=== PATIENT | female | born 1940 | race Caucasian/White ===

== ENCOUNTER 2018-03-11 18:29 | Emergency (ER) | payer MEDICARE, BC ==
[2018-03-11] MEDS: Ondansetron 4 MG Tab.DIS PO ONE (19:12)
[2018-03-11] MEDS: Acetaminophen 325 MG Tab PO ONE (19:15)
--- NOTE | 2018-03-12 02:49 | ER ---
DATE OF SERVICE: 03/11/2018 HISTORY OF PRESENT ILLNESS: A 78-year-old lady who comes in by a private car. She tells me that she tripped while walking out of the local [employer] about 3 p.m. this afternoon. She was carrying an arm-load of groceries and other items that she purchased, and she tells me that she could not really see well right in front of her. She thinks she tripped on a rug. She fell forward and hit her face on the cement. The patient states that she was nauseated right away, but she did not vomit. She has been nauseated off and on since the injury, but again no vomiting. She feels lightheaded at times, and she has noticed some mild visual changes with the left eye. There has also been significant swelling around the left eye, mainly from the forehead area, but it does radiate down around the eye to the point where her eye is mostly closed with the swelling. The patient rates her pain currently at 2/10 or 3/10. She has not taken any [id number] pain medication. She did go back to her cabin and took a nap. She woke up and again felt lightheaded when she stood up, and she thought she should come in for evaluation. The patient is not on any blood thinner medications. MEDICATIONS: Her medications include amlodipine, metoprolol, Cozaar, and Protonix. ALLERGIES: ALBUTEROL, ATROPINE, PHENOBARBITAL, SCOPOLAMINE, AND HYOSCYAMINE. OBJECTIVE: GENERAL APPEARANCE: The patient is awake. She is in no respiratory distress. She has significant swelling and bruising around the left eye, mostly superior, but it is periorbital. VITAL SIGNS: Reviewed. Blood pressure 150/72. She is afebrile. Pulse is 95, respirations 18, O2 sats are 98%. HEENT: With mild pressure applied, I was able to visualize the left eye. Sclerae are white. Pupils equal, round, and reactive to light. Ears, TMs are normal. Nares are patent. Oral, there is no sign of dental or oral injury. NECK: Supple with full and unguarded range of motion, just done cautiously. The patient denies any new neck pain, and she has no headache other than forehead area where the obvious injury is. LUNGS: Clear to auscultation. CARDIAC: Heart sounds distinct without murmurs. SKIN: Warm and dry. LAB AND X-RAY: CBC and basic metabolic panel are obtained. They are normal. Head CT without contrast shows no acute intracranial injury or lesion. The patient does have an extracranial soft-tissue hematoma on the left frontal side. CT of the facial bones was also obtained with again left periorbital swelling and soft tissue hematoma. No fracture. The patient was given Zofran 4 mg sublingual while waiting for test results as well as Tylenol 650 mg. After the test results were back, the patient states that she is feeling better. Her nausea is gone. She feels a little weak and tired, but otherwise is feeling better with minimal visual changes at this time. At this point, the patient was able to get up and walk around the emergency room without any obvious unsteadiness or lightheadedness. DIAGNOSIS: Contusion injury to left forehead with hematoma secondary to fall. TREATMENT PLAN: The patient is discharged to go home. She is to go home and rest tonight. She is to take it easy for the next couple of days. I advised patient not to do any cleaning type activities, which she was planning on doing at her cabin. I advised patient to use Tylenol regularly for the next day and then as needed and apply ice packs frequently to her forehead and left eye area. She is to monitor for any worsening of symptoms. If anything does happen, she is to call us back or come back in for recheck as needed. The patient is agreeable with the treatment plan and has no further questions. MAXI/HIEN /[id number] JAMES
--- NOTE | 2018-03-12 08:30 | CT ---
DATE OF SERVICE: 03/11/18 CLINICAL DATA: fell today with facial injuries UNENHANCED BRAIN CT: Multislice acquisition through the brain without IV contrast was performed. There is diffuse cerebral atrophy. There are extensive periventricular lucencies bilaterally consistent with small vessel ischemic change. No masses or mass effect. No intracranial hemorrhage. No evidence of acute or subacute infarct. There is soft tissue swelling of the scalp adjacent to the frontal bone on the left. There is also preseptal soft tissue swelling on the left. I do not see a definite fracture. IMPRESSION: No acute intracranial abnormalities. [id number] [facility]
--- NOTE | 2018-03-12 08:34 | CT ---
DATE OF SERVICE: 03/11/18 CLINICAL DATA: fell today with facial injuries. FACIAL CT: Multislice axial acquisition was performed. Axial images and sagittal and coronal reformations are reviewed. There is soft tissue swelling anterior to the frontal bone on the left. There is also preseptal soft tissue swelling on the left. I do not see any fractures. The globes and orbital contents appear unremarkable. There is minimal deviation of the nasal septum to the right. The paranasal sinuses are clear. No air-fluid levels. No other significant findings. [id number] [facility]
== END 2018-03-11 20:20 | disposition home or self-care (01) ==
LOC: LB.ED 18:29
DX: S50.12XA Contusion of left forearm, initial encounter (principal); W01.0XXA Fall on same level from slipping, tripping and stumbling without subsequent striking against object, initial encounter; Y93.9 Activity, unspecified; Z88.8 Allergy status to other drugs, medicaments and biological substances
CPT/HCPCS: 36415; 70450; 70486; 80048; 85025; 99283; 99284-25; A9270-GY

== ENCOUNTER 2018-04-01 14:53 | Inpatient (IN) | payer MEDICARE, BC ==
[2018-04-01] MEDS ORDERED: Acetaminophen 500 MG Tab PO PRN (16:58)
[2018-04-01] MEDS ORDERED: Verapamil 5 MG/2 ML SDV IVPUSH ONE (16:58)
--- NOTE | 2018-04-01 17:00 | PCM.HP ---
H&P History of Present Illness - General Date of Service: 04/01/18 Admit Problem/Dx: Admission Diagnosis/Problem Admission Diagnosis/Problem Atrial fibrillation Source of Information: Patient History Limitations: Reports: No Limitations - History of Present Illness Initial Comments - Free Text/Narative: This is a 78yo F who presented to clinic for shortness of breath that had been on going for months. She states she felt that it was more chest congestion. She denies any prior heart concerns or lung issues. 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 She denies any fever or chills. She feels that her shortness of breath has worsened the past month. Patient does describe that she has had prior SVT that is treated with her metoprolol. Patient denies any episodes of dizziness or fainting. Onset of Symptoms: Reports: Gradual Duration of Symptoms: Reports: Week(s):, Getting Worse Location: Reports: Generalized Severity: Moderate Improves with: Reports: None Worsens with: Reports: Movement Context: Reports: Activity/Exercise, Exertion Associated Symptoms: Reports: Shortness of Breath - Related Data Allergies/Adverse Reactions: Allergies Allergy/AdvReac Type Severity Reaction Status Date / Time atropine [From ] Allergy Hives Verified 04/01/18 18:54 fluticasone Allergy Airway Verified 04/01/18 18:54 [From Advair Diskus] Tightness hyoscyamine [From ] Allergy Hives Verified 04/01/18 18:54 phenobarbital [From ] Allergy Hives Verified 04/01/18 18:54 salmeterol Allergy Airway Verified 04/01/18 18:54 [From Advair Diskus] Tightness scopolamine [From ] Allergy Hives Verified 04/01/18 18:54 Home Medications: Home Meds Metoprolol Succinate [Toprol Xl] 25 mg PO DAILY 03/11/18 [History] Metoprolol Succinate [Toprol Xl] 50 mg PO BEDTIME 03/11/18 [History] Multivitamin [Multivitamins] 1 each PO DAILY 03/11/18 [History] Pantoprazole [ProTONIX] 40 mg PO DAILY 03/11/18 [History] Acetaminophen [Tylenol Extra Strength] 500 mg PO ASDIRECTED PRN 04/01/18 [ History] Venlafaxine [Effexor XR] 150 mg PO BEDTIME 04/01/18 [History] Enoxaparin [Lovenox] 75 mg SUBCUT Q12H 7 Days #14 syringe 04/02/18 [Rx] Verapamil [Calan] 80 mg PO TID 20 Days #60 tablet 04/02/18 [Rx] Past Medical History Cardiovascular History: Reports: Hypertension Gastrointestinal History: Reports: GERD Musculoskeletal History: Reports: Osteoarthritis - Past Surgical History Neurological Surgical History: Reports: Lumbar Spine, Spinal Fusion Other Neurological Surgeries/Procedures: Spinal Block to L2-L3; Fusion and Hardware to L5-S1 Musculoskeletal Surgical History: Reports: Knee Replacement, Other (See Below) Other Musculoskeletal Surgeries/Procedures:: Bilateral TKA Social & Family History - Family History Family Medical History: Noncontributory - Caffeine Use Caffeine Use: Reports: Coffee H&P Review of Systems - Review of Systems: Review Of Systems: ROS reveals no pertinent complaints other than HPI. Exam - Exam Exam: See Below - Exam General: Alert, Oriented, Cooperative HEENT: PERRLA, Conjunctiva Clear, EACs Clear Neck: Supple, Trachea Midline Lungs: Normal Respiratory Effort, Crackles (b/l bases) Cardiovascular: Irregular Rhythm, Tachycardia GI/Abdominal Exam: Normal Bowel Sounds, Soft, Non-Tender Back Exam: Normal Inspection Extremities: Normal Inspection, Normal Range of Motion, Non-Tender Peripheral Pulses: 2+: Dorsalis Pedis (L), Dorsalis Pedis (R) Skin: Warm, Dry, Intact - Patient Data Lab Results Last 24 hrs: Laboratory Results - last 24 hr 04/01/18 04/01/18 04/01/18 Range/Units 15:04 15:04 15:04 WBC 7.9 (4.0-11.0) K/uL RBC 4.53 (3.80-5.80) M/uL Hgb 12.5 (11.5-16.5) g/dL Hct 39.2 (37.0-47.0) % MCV 87 (76-96) fL MCH 27.6 (27.0-32.0) pg MCHC 31.9 (31.0-35.0) g/dL RDW 14.7 (11.0-16.0) % Plt Count 258 (150-500) K/uL MPV 10.0 (6.0-10.0) fL Neut % (Auto) 61.8 (45.0-70.0) % Lymph % (Auto) 25.2 (20.0-40.0) % Lynn % (Auto) 10.3 H (3.0-10.0) % Eos % (Auto) 2.2 (1.0-5.0) % Baso % (Auto) 0.5 (0.0-0.5) % Neut # (Auto) 4.87 (2.00-7.50) K/uL Lymph # (Auto) 1.98 (1.50-4.00) K/uL Lynn # (Auto) 0.81 H (0.20-0.80) K/uL Eos # (Auto) 0.17 (0.04-0.40) K/uL Baso # (Auto) 0.04 (0.02-0.10) K/uL D-Dimer, Quantitative 959 H (0-400) ng/mL Sodium 141 (136-145) mmol/L Potassium 4.3 (3.5-5.1) mmol/L Chloride 105 (98-107) mmol/L Carbon Dioxide 27.6 (21.0-32.0) mmol/L Anion Gap 12.7 (5.0-15.0) mmol/L BUN 16 D (8-26) mg/dL Creatinine 0.93 (0.55-1.02) mg/dL Est Cr Clr Drug Dosing TNP Estimated GFR (MDRD) 58 L (>60) MLS/MIN BUN/Creatinine Ratio 17.2 (6-25) Glucose 100 D (74-100) mg/dL Calcium 8.9 (8.5-10.1) mg/dL Total Bilirubin 0.6 (0.0-1.0) mg/dL AST 24 (15-37) U/L ALT 22 (12-78) U/L Alkaline Phosphatase 101 (46-116) U/L Troponin I < 0.017 (0.000-0.060) ng/mL Total Protein 7.0 (6.4-8.2) g/dL Albumin 3.6 (3.4-5.0) g/dL Globulin 3.4 (2.2-4.2) g/dL Albumin/Globulin Ratio 1.1 (0.8-2.0) Result Diagrams: 04/01/18 15:04 04/01/18 15:04 - Problem List (1) Elevated d-dimer SNOMED Code(s): 535264632 ICD Code: R79.89 - OTHER SPECIFIED ABNORMAL FINDINGS OF BLOOD CHEMISTRY Status: Acute Priority: High Current Visit: Yes (2) New onset atrial fibrillation SNOMED Code(s): 98320813 ICD Code: I48.91 - UNSPECIFIED ATRIAL FIBRILLATION Status: Acute Priority : High Current Visit: Yes (3) Shortness of breath SNOMED Code(s): 098252635 ICD Code: R06.02 - SHORTNESS OF BREATH Status: Acute Priority: High Current Visit: Yes Problem List Initiated/Reviewed/Updated: Yes Orders Last 24hrs: Active Orders 24 hr Category Date Time Status Patient Status [ADT] Routine ADT 04/01/18 16:49 Ordered Oxygen Therapy [RC] PRN Care 04/01/18 16:49 Ordered Vital Signs [RC] Q4H Care 04/01/18 16:49 Ordered Heart Healthy Diet [DIET] Diet 04/01/18 Dinner Ordered Chest 2V [CR] Routine Exams 04/01/18 Taken Acetaminophen [Tylenol Extra Strength] Med 04/01/18 16:58 Ordered 500 mg PO ASDIRECTED PRN Metoprolol Succinate [Toprol XL] Med 04/02/18 08:00 Ordered 25 mg PO DAILY Metoprolol Succinate [Toprol XL] Med 04/01/18 20:00 Ordered 50 mg PO BEDTIME Multivitamin [Multivitamins] Med 04/02/18 08:00 Ordered 1 each PO DAILY Pantoprazole [ProTONIX] Med 04/02/18 08:00 Ordered 40 mg PO DAILY Venlafaxine [Effexor XR] Med 04/01/18 20:00 Ordered 150 mg PO BEDTIME Verapamil [Calan] Med 04/01/18 16:58 Once 5 mg IVPUSH ONETIME ONE Medication Orders Acetaminophen (Tylenol Extra Strength) 500 mg PO ASDIRECTED PRN PRN Reason: Pain Metoprolol Succinate (Toprol Xl) 25 mg PO DAILY JANETH Metoprolol Succinate (Toprol Xl) 50 mg PO BEDTIME JANETH Non-Formulary Medication (Multivitamin [Multivitamins]) 1 each PO DAILY JANETH Pantoprazole Sodium (Protonix) 40 mg PO DAILY JANETH Venlafaxine HCl (Effexor Xr) 150 mg PO BEDTIME JANETH Verapamil HCl (Calan) 5 mg IVPUSH ONETIME ONE Stop: 04/01/18 16:59 Assessment/Plan Comment:: Patient will be admitted for cardiac telemetry monitoring and management. We will start Verapamil as we do not have Cardizem at this time and her BP is normal. Patient agrees with plan of care. Labs discussed with patient including elevated D-dimer.
[2018-04-01] MEDS: Enoxaparin 80 MG/0.8 ML Syringe ONE ×2 (18:24→18:44)
[2018-04-01] MEDS ORDERED: Sodium Chloride 0.9% 10 ML Syringe FLUSH PRN (18:36)
[2018-04-01] MEDS: Enoxaparin 80 MG/0.8 ML Syringe SUBCUT SCH (18:43)
[2018-04-01] MEDS ORDERED: Sodium Chloride 0.9% 1,000 ML IV SCH (18:45)
[2018-04-01] MEDS ORDERED: Acetaminophen 500 MG Tab ONE (19:39)
[2018-04-01] MEDS ORDERED: Venlafaxine 150 MG Cap.ER PO SCH (20:00)
[2018-04-01] MEDS ORDERED: Verapamil 5 MG/2 ML SDV IV SCH (20:00)
[2018-04-01] MEDS ORDERED: Metoprolol Succinate 50 MG Tab.ER PO SCH (20:00)
[2018-04-01] MEDS: Acetaminophen 500 MG Tab PO PRN (20:23)
[2018-04-02] MEDS: Acetaminophen 500 MG Tab PO PRN (05:25)
[2018-04-02] MEDS: Enoxaparin 80 MG/0.8 ML Syringe SUBCUT SCH (06:22)
[2018-04-02] MEDS ORDERED: Pantoprazole 40 MG Tab.CR PO SCH (07:00)
[2018-04-02] MEDS ORDERED: Multivitamins with Iron/Calcium/Folic Acid/Minerals Tab PO SCH (08:00)
[2018-04-02] MEDS ORDERED: Metoprolol Succinate 25 MG Tab.ER PO SCH (08:00)
[2018-04-02] MEDS ORDERED: Verapamil 120 MG Tab.ER PO SCH (08:30)
--- NOTE | 2018-04-02 08:31 | CR ---
PA AND LATERAL CHEST, 04/01/18 No priors. The heart is enlarged. It does have somewhat of a globular appearance and the possibility of a pericardial effusion should be considered. Echocardiogram is recommended. The aorta is calcified and ectatic. The lungs are hyperexpanded. There is increased density in both lung bases consistent with basilar atelectasis or infiltrate. There is blunting of both costophrenic angles consistent with bilateral pleural effusions. No pneumothorax. No other significant findings. [id number] [facility]
[2018-04-02] MEDS: Verapamil 80 MG Tab PO SCH ×2 (09:15→14:48)
[2018-04-02] MEDS ORDERED: Iopamidol 612 MG/ML 100 ML Bottle IV PRN (14:40)
[2018-04-02] MEDS ORDERED: Sodium Chloride 0.9% 50 ML SDV FLUSH SCH (14:45)
[2018-04-02] MEDS ORDERED: Furosemide 40 MG/4 ML VIAL IVPUSH ONE (16:12)
[2018-04-02] MEDS ORDERED: LORazepam 2 MG/ML SDV ONE (16:17)
--- NOTE | 2018-04-02 16:41 | PCM.DCSUM1 ---
Discharge Summary - Hospital Course Brief History: Patient admitted for new onset Atrial fibrillation. Possibly present for months prior to evaluation. Patient has shortness of breath that has worsened the past few months. - Discharge Data Discharge Date: 04/02/18 Discharge Disposition: Home, Self-Care 01 Condition: Good - Discharge Diagnosis/Problem(s) (1) New onset atrial fibrillation SNOMED Code(s): 09932081 ICD Code: I48.91 - UNSPECIFIED ATRIAL FIBRILLATION Status: Acute Priority : High Current Visit: Yes (2) Shortness of breath SNOMED Code(s): 392210108 ICD Code: R06.02 - SHORTNESS OF BREATH Status: Acute Priority: High Current Visit: Yes (3) Elevated d-dimer SNOMED Code(s): 077483393 ICD Code: R79.89 - OTHER SPECIFIED ABNORMAL FINDINGS OF BLOOD CHEMISTRY Status: Acute Priority: High Current Visit: Yes (4) Anxiety SNOMED Code(s): 46193428 ICD Code: F41.9 - ANXIETY DISORDER, UNSPECIFIED Status: Acute Priority: High Current Visit: Yes - Patient Instructions Diet: Heart Healthy Diet Activity: Rest and Relax Today Driving: Do Not Drive Notify Provider of: Fever, Nausea and/or Vomiting - Discharge Plan Prescriptions/Med Rec: Enoxaparin [Lovenox] 75 mg SUBCUT Q12H 7 Days #14 syringe Verapamil [Calan] 80 mg PO TID 20 Days #60 tablet Home Medications: Home Meds Metoprolol Succinate [Toprol Xl] 25 mg PO DAILY 03/11/18 [History] Metoprolol Succinate [Toprol Xl] 50 mg PO BEDTIME 03/11/18 [History] Multivitamin [Multivitamins] 1 each PO DAILY 03/11/18 [History] Pantoprazole [ProTONIX] 40 mg PO DAILY 03/11/18 [History] Acetaminophen [Tylenol Extra Strength] 500 mg PO ASDIRECTED PRN 04/01/18 [ History] Venlafaxine [Effexor XR] 150 mg PO BEDTIME 04/01/18 [History] Enoxaparin [Lovenox] 75 mg SUBCUT Q12H 7 Days #14 syringe 04/02/18 [Rx] Verapamil [Calan] 80 mg PO TID 20 Days #60 tablet 04/02/18 [Rx] Patient Handouts: Enoxaparin injection, How and Where to Give Subcutaneous Enoxaparin Injections, Atrial Fibrillation, [id number] - Discharge Summary/Plan Comment DC Time >30 min.: Yes Discharge Summary/Plan Comment: Patient counseled on rest and relaxation until follow up with PCP. Patient to have follow up 2D Echocardiogram done. Discussed CT results regarding no PE but some cardiomegaly, pleural effusion and nodules. Patient understands current new medications and discontinuation of amlodipine (hasn't take for months) and losartan at this time until followed up by PCP. New meds are Xanax prn, Verapamil 80mg TID and Lovenox 75mg SQ BID and further management to be done by PCP or Cardiology. Labs and imaging reports sent with patient. Patient counseled on f/u and rtc or ER if symptoms worsen prior to follow up on with PCP. - Patient Data Vitals - Most Recent: Last Vital Signs Temp 37.1 C 04/02/18 16:00 Pulse 79 04/02/18 16:00 Resp 20 04/02/18 16:00 BP 144/78 H 04/02/18 16:00 Pulse Ox 98 04/02/18 16:00 Weight - Most Recent: 70.851 kg I&O - Last 24 hours: Intake & Output 04/02/18 04/02/18 04/02/18 06:59 14:59 22:59 Intake Total 560 Output Total 500 Balance 60 Lab Results - Last 24 hrs: Laboratory Results - last 24 hr 04/02/18 Range/Units 08:21 TSH, Ultra Sensitive 2.850 (0.358-3.740) uIU/mL Med Orders - Current: Current Medications Acetaminophen (Tylenol Extra Strength) 500 mg PO Q6H PRN PRN Reason: Pain Last Admin: 04/02/18 05:25 Dose: 500 mg Enoxaparin Sodium (Lovenox) 75 mg SUBCUT Q12H JANETH Last Admin: 04/02/18 06:22 Dose: 75 mg Sodium Chloride (Normal Saline) 1,000 mls @ 0 mls/hr IV ASDIRECTED JANETH Iopamidol (Isovue-300 (61%)) 100 ml IV ASDIRECTED PRN PRN Reason: RADIOLOGY EXAM Last Admin: 04/02/18 15:29 Dose: 100 ml Metoprolol Succinate (Toprol Xl) 25 mg PO DAILY [facility] Last Admin: 04/02/18 09:16 Dose: 25 mg Metoprolol Succinate (Toprol Xl) 50 mg PO BEDTIME JANETH Last Admin: 04/01/18 19:58 Dose: 50 mg Multivitamins/Minerals (Thera M Plus) 1 tab PO DAILY JANETH Last Admin: 04/02/18 09:15 Dose: 1 tab Pantoprazole Sodium (Protonix) 40 mg PO ACBREAKFAST [facility] Last Admin: 04/02/18 06:27 Dose: 40 mg Sodium Chloride (Saline Flush) 10 ml FLUSH ASDIRECTED PRN PRN Reason: Keep Vein Open Sodium Chloride (Normal Saline) 50 ml FLUSH ONETIME [facility] Last Admin: 04/02/18 15:28 Dose: 100 ml Venlafaxine HCl (Effexor Xr) 150 mg PO BEDTIME JANETH Last Admin: 04/01/18 19:58 Dose: 150 mg Verapamil HCl (Calan) 80 mg PO TID [facility] Last Admin: 04/02/18 14:48 Dose: 80 mg Discontinued Medications Acetaminophen (Tylenol Extra Strength) 500 mg PO ASDIRECTED PRN PRN Reason: Pain Acetaminophen (Tylenol Extra Strength) Confirm Administered Dose 1,000 mg .ROUTE .STK-MED ONE Stop: 04/01/18 19:40 Last Admin: 04/01/18 20:39 Dose: Not Given Enoxaparin Sodium (Lovenox) Confirm Administered Dose 80 mg .ROUTE .STK-MED ONE Stop: 04/01/18 18:20 Last Admin: 04/01/18 18:44 Dose: Not Given Furosemide (Lasix) 40 mg IVPUSH NOW ONE Stop: 04/02/18 16:13 Lorazepam (Ativan) Confirm Administered Dose 2 mg .ROUTE .STK-MED ONE Stop: 04/02/18 16:18 Verapamil HCl (Calan) 5 mg IVPUSH ONETIME ONE Stop: 04/01/18 16:59 Last Admin: 04/01/18 17:05 Dose: 5 mg Verapamil HCl (Calan) 0 mg IV ASDIRECTED JANETH; Protocol Last Admin: 04/01/18 19:50 Dose: 5 mg
--- NOTE | 2018-04-05 13:36 | CT ---
ENHANCED CHEST CT, 04/02/18 Multislice acquisition through the chest with IV contrast was performed. No priors. No evidence of PE. No pneumothorax. No aortic aneurysm. There is a small left pleural effusion and a moderate size right pleural effusion. The pulmonary vasculature is prominent. There are scattered reticular opacities throughout both lungs with interstitial edema bilaterally. The heart is also enlarged. Congestive failure is suspected. No pericardial effusion. There is a large hiatal hernia. I do not see any other significant findings. IMPRESSION: Abnormal exam. See above. [id number] [facility]
== END 2018-04-02 16:52 | disposition home or self-care (01) | DRG 310 ==
LOC: LB.CLINIC 14:53 → UNDOADMOB 16:35 → LB.MS 16:35 → INTOOBSV 16:49 → OBSVTOIN 16:49
PROVIDERS: ADMIT Family Medicine; ATTEND Family Medicine
DX: I48.91 Unspecified atrial fibrillation (principal); I10 Essential (primary) hypertension; R79.89 Other specified abnormal findings of blood chemistry; K21.9 Gastro-esophageal reflux disease without esophagitis; M19.90 Unspecified osteoarthritis, unspecified site; Z96.653 Presence of artificial knee joint, bilateral; Z88.8 Allergy status to other drugs, medicaments and biological substances; R06.02 Shortness of breath; F41.9 Anxiety disorder, unspecified
CPT/HCPCS: 36415; 71046; 71260; 80053; 84443; 84484; 85025; 85379; 93005; A9270-GY; J1650; J1940; J3490; Q9967